=== PATIENT | male | born 1980 | race Caucasian/White ===

== ENCOUNTER 2016-11-23 14:46 | Emergency (ER) | payer OTHER ==
--- NOTE | 2016-11-23 14:46 | EDPHY ---
H & P Time Seen by Provider: 11/23/16 14:46 HPI/ROS: CHIEF COMPLAINT: Seizure HISTORY OF PRESENT ILLNESS: Patient was at work and was seen to have a tonic- clonic seizure by coworkers. He bit his tongue. It is EMS glucose is greater than 200 and is brought to the emergency department with only complained of a mild headache. He says he had a seizure 7 or 8 months ago and was seen at the emergency department in [place] but did not have cranial imaging. He was told it was likely due to alcohol withdrawal. He states to me however that his last drink was 2 weeks ago. REVIEW OF SYSTEMS: Eye: no change in vision ENT: no sore throat Cardiac: no chest pain or syncope Pulmonary: no cough or SOB Abdomen: no vomiting, diarrhea, abdominal pain Musculoskeletal: no back pain or neck pain Skin: no rash Neuro: Mild headache, no weakness or numbness in extremities. Constitutional: no fever : no urinary symptoms A comprehensive 10 point review of systems is otherwise negative aside from elements mentioned in the history of present illness. PAST MEDICAL HISTORY: Depression on Wellbutrin Social history: No alcohol for 2 weeks, previous heavy alcohol use. General Appearance: Alert and conversant, cooperative. Eyes: No scleral icterus. ENT, Mouth: Right-sided tongue abrasion with central tongue stud piercing. Respiratory: Normal respiratory effort, breath sounds equal, lungs are clear to auscultation. Cardiovascular: Regular rate and rhythm. Gastrointestinal: Abdomen is soft and non tender. Neurological: Alert and oriented x3. Normally conversant. Face symmetric, normal movement and sensation in all extremities. Not tremulous or confused. No clonus, not hyperreflexic. Skin: Warm and dry, no rashes. Musculoskeletal: No peripheral edema and no joint swelling. No spinal tenderness. Psychiatric: Not agitated. Emergency Department course/MDM: Oral acetaminophen 650 and ibuprofen 600, noncontrast head CT scanning for 2nd seizure with no ever cranial imaging and the patient states 2 week lag between last alcohol intake and today's event. That would make alcohol withdrawal seizure much less likely. Warned no driving. Patient had witnessed seizure activity, incontinence, tongue abrasion, low venous bicarbonate all supportive of diagnosis of seizure. Discussed with Dr. Centeno who was on-call for the patient's primary care physician; he recommends that patient not take his Buproprion until he is seen in the office next week. 1530: Results discussed, above information re-emphasized. Constitutional: Initial Vital Signs Temperature (C) 37 C 11/23/16 14:56 Heart Rate 106 H 11/23/16 14:56 Respiratory Rate 18 11/23/16 14:56 Blood Pressure 142/107 H 11/23/16 14:56 O2 Sat (%) 93 11/23/16 14:56 O2 Delivery Mode Room Air Allergies/Adverse Reactions: No Known Allergies Allergy (Unverified 11/23/16 14:59) Home Medications: Medication Instructions Recorded Wellbutrin Xl 11/23/16 Medical Decision Making - Diagnostics Imaging: Negative head CT reviewed with Sara at 3:17 p.m. Differential Diagnosis: Differential diagnosis considered for a seizure including but not limited to electrolyte abnormality, alcohol withdrawal, medication side effect, head injury , and breakthrough seizure. - Data Points Laboratory Results: Laboratory Results 11/23/16 14:59 11/23/16 14:59 11/23/16 11/23/16 14:59 14:59 WBC 7.50 10^3/uL 10^3/uL (3.80-9.50) RBC 5.10 10^6/uL 10^6/uL (4.40-6.38) Hgb 17.6 g/dL H g/dL (13.7-17.5) Hct 50.8 % % (40.0-51.0) MCV 99.6 fL fL (81.5-99.8) MCH 34.5 pg H pg (27.9-34.1) MCHC 34.6 g/dL g/dL (32.4-36.7) RDW 12.3 % % (11.5-15.2) Plt Count 178 10^3/uL 10^3/uL (150-400) MPV 9.6 fL fL (8.7-11.7) Neut % (Auto) 66.4 % % (39.3-74.2) Lymph % (Auto) 21.5 % % (15.0-45.0) [place] % (Auto) 10.4 % % (4.5-13.0) Eos % (Auto) 0.8 % % (0.6-7.6) Baso % (Auto) 0.4 % % (0.3-1.7) Nucleat RBC Rel Count 0.0 % % (0.0-0.2) Absolute Neuts (auto) 4.98 10^3/uL 10^3/uL (1.70-6.50) Absolute Lymphs (auto) 1.61 10^3/uL 10^3/uL (1.00-3.00) Absolute Monos (auto) 0.78 10^3/uL 10^3/uL (0.30-0.80) Absolute Eos (auto) 0.06 10^3/uL 10^3/uL (0.03-0.40) Absolute Basos (auto) 0.03 10^3/uL 10^3/uL (0.02-0.10) Absolute Nucleated RBC 0.00 10^3/uL 10^3/uL (0-0.01) Immature Gran % 0.5 % % (0.0-1.1) Immature Gran # 0.04 10^3/uL 10^3/uL (0.00-0.10) Sodium 139 mEq/L mEq/L (134-144) Potassium 3.7 mEq/L mEq/L (3.5-5.2) Chloride 92 mEq/L L mEq/L (97-110) Carbon Dioxide 17 mEq/l L mEq/l (22-31) Anion Gap 30 mEq/L H mEq/L (8-16) BUN 14 mg/dL mg/dL (7-23) Creatinine 1.1 mg/dL mg/dL (0.7-1.3) Estimated GFR > 60 Glucose 166 mg/dL H mg/dL (70-100) Calcium 10.6 mg/dL H mg/dL (8.5-10.4) Medications Given: Discontinued Medications Acetaminophen (Tylenol) 650 mg PO EDNOW ONE Stop: 11/23/16 15:01 Last Admin: 11/23/16 15:20 Dose: 650 mg Ibuprofen (Motrin) 600 mg PO EDNOW ONE Stop: 11/23/16 15:01 Last Admin: 11/23/16 15:20 Dose: 600 mg Departure - Departure Disposition: Home, Routine, Self-Care Clinical Impression: Seizure disorder Condition: Good Instructions: Epilepsy (ED) Additional Instructions: No driving ! until OK by Dr. Dover in followup. Stop taking your Wellbutrin until discussed with your primary care doctor in the office next week. Referrals: Patient,NotPresent [Unknown] - As per Instructions Ric Dover MD [Medical Doctor] - As per Instructions (Call today or tomorrow to arrange follow-up tomorrow or early next week)
[2016-11-23 14:59] VITALS: RESP 18
[2016-11-23] MEDS ORDERED: IBUPROFEN 600 MG TAB PO ONE (15:00)
[2016-11-23] MEDS ORDERED: ACETAMINOPHEN 325 MG TAB PO ONE (15:00)
[2016-11-23 15:03] LABS: % IMMATURE GRANULYOCYTES 0.5 % (0.0-1.1); ABSOLUTE IMMATURE GRANULOCYTES 0.04 10^3/uL (0.00-0.10); ADD DIFF? NO; ADD MORPH? NO; ADD SCAN? NO; ATYPICAL LYMPHOCYTE FLAG 10 (0-99); FRAGMENT RBC FLAG 0 (0-99); HEMATOCRIT 50.8 % (40.0-51.0); HEMOGLOBIN 17.6 g/dL (13.7-17.5); LEFT SHIFT FLG 0 (0-99); LIPEMIA HEMOLYSIS FLAG 90 (0-99); MEAN CELL HEMOGLOBIN 34.5 pg (27.9-34.1); MEAN CELL HEMOGLOBIN CONCENTR. 34.6 g/dL (32.4-36.7); MEAN CELL VOLUME 99.6 fL (81.5-99.8); MEAN PLATELET VOLUME 9.6 fL (8.7-11.7); PLATELET CLUMPS FLAG 0 (0-99); PLATELET COUNT 178 10^3/uL (150-400); RED CELL DISTRIBUTION WIDTH 12.3 % (11.5-15.2)
[2016-11-23 15:33] LABS: ANION GAP 30 mEq/L (8-16); CALCIUM 10.6 mg/dL (8.5-10.4); CARBON DIOXIDE 17 mEq/l (22-31); CHLORIDE 92 mEq/L (97-110); CREATININE 1.1 mg/dL (0.7-1.3); GLOMERULAR FILTRATION RATE > 60; GLUCOSE 166 mg/dL (70-100); POTASSIUM 3.7 mEq/L (3.5-5.2); SODIUM 139 mEq/L (134-144)
[2016-11-23 16:05] VITALS: BP 135/77; PULSE 98; TEMP 97.9; O2SAT 96
== END 2016-11-23 16:05 | disposition home or self-care (01) ==
LOC: EDUNIT#
DX: G40.909 Epilepsy, unspecified, not intractable, without status epilepticus (principal)